=== PATIENT | male | born 1975 | race Caucasian/White ===

== ENCOUNTER → 2017-07-07 12:41 | Outpatient (CLI) | payer OTHER, SELFPAY ==
[2017-07-07 14:32] LABS: Liquefaction Semen YES (YES); Sperm Count 35 x10^6/mL (20-150); Sperm Motility 45% % Motile
[2017-07-07 14:33] LABS: Sperm Morphology 62 %ABNORM (0-30)
== END ==
PROVIDERS: PCP Specialist; Visit Provider Specialist
DX: N46.9 Male infertility, unspecified (principal)
CPT/HCPCS: 89320

== ENCOUNTER → 2017-07-21 08:56 | Outpatient (CLI) | payer OTHER, SELFPAY | PROVIDERS: PCP Specialist; Visit Provider Specialist | DX: R86.9 Unspecified abnormal finding in specimens from male genital organs (principal) ==

== ENCOUNTER → 2017-07-21 08:59 | Outpatient (CLI) | payer OTHER, SELFPAY ==
[2017-07-21 10:14] LABS: Liquefaction Semen YES (YES); Sperm Count 497 x10^6/mL (20-150); Sperm Morphology 11 %ABNORM (0-30); Sperm Motility 60% % Motile; Volume Semen 4.5 (1.0-5.0)
== END ==
PROVIDERS: PCP Specialist; Visit Provider Specialist
DX: R86.9 Unspecified abnormal finding in specimens from male genital organs (principal)
CPT/HCPCS: 89320

== ENCOUNTER → 2017-09-21 12:47 | Outpatient (CLI) | payer OTHER, SELFPAY ==
--- NOTE | 2017-09-21 | DI.MRI.S_ITS ---
PROCEDURE: MR FOOT LEFT WO/W CON INDICATIONS: Localized swelling, mass and lump, left lower limb TECHNIQUE: Noncontrast coronal T1 spin echo and STIR, sagittal T1 spin echo with fat saturation and STIR, axial T1 spin echo and T2 fast spin echo with fat saturation. After the administration of contrast, axial/sagittal/coronal T1 spin echo with fat saturation through the left foot. COMPARISON: None. FINDINGS: Image quality: Excellent. Bones: The visualized bone marrow demonstrates normal signal on all sequences. The overlying cortex appears intact. No abnormal intraosseous enhancement. Soft tissues: There is a predominantly T1 hypointense and T2 hyperintense lesion in soft tissue along plantar aspect of first metatarsal head and measures 2.1 x 1.5 x 2 cm in size. Similar signal intensity lesion measures 1.1 x 1 x 2.6 cm in size is noted within soft tissue along plantar aspect of second MTP joint. Both lesion shows fairly homogeneous contrast enhancement. No other area of abnormal enhancement is seen. There is no underlying flexor tendon involvement. Lisfranc ligament and joint is intact. The scanned muscles demonstrate normal overall bulk and internal signal. IMPRESSION: 2 enhancing soft tissue mass along plantar aspect of first and second MTP joints as described above, with no underlying flexor tendon involvement in or muscle involvement. No marrow signal abnormality. Consider excision or biopsy of the lesions for tissue diagnosis. Dictated by: Deandre Merino M.D. on 09/21/2017 at 15:27 Approved by: Deandre Merino M.D. on 09/21/2017 at 15:32
--- NOTE | 2017-09-21 | DI.MRI.S_ITS ---
PROCEDURE: MR FOOT RT WO/W CON INDICATIONS: Localized swelling, mass and lump, left lower limb TECHNIQUE: Noncontrast coronal T1 spin echo and STIR, sagittal T1 spin echo with fat saturation and STIR, axial T1 spin echo and T2 fast spin echo with fat saturation. After the administration of contrast, axial/sagittal/coronal T1 spin echo with fat saturation through the right foot. COMPARISON: None. FINDINGS: Image quality: Excellent. Bones: The visualized bone marrow demonstrates normal signal on all sequences. The overlying cortex appears intact. No abnormal intraosseous enhancement. Soft tissues: There is a 14 x 8 x 13 mm T1 hypointense and heterogeneously T2 hyperintense lesion within plantar soft tissue of the forefoot at the level of the first metatarsal base superficial and likely involving the plantar fascia this level. Fairly homogeneous contrast enhancement within this lesion is noted. No other enhancing lesion is seen. The scanned muscles demonstrate normal overall bulk and internal signal. IMPRESSION: T1 hypointense and T2 hyperintense enhancing lesion involving superficial and likely involving the plantar fascia at the level of first metatarsal base and measures 14 x 8 x 13 mm in size. Finding could represent a plantar fibroma versus other type of soft tissue mass. No underlying plantar fascia rupture. No underlying muscle involvement. No marrow signal abnormality. Dictated by: Deandre Merino M.D. on 09/21/2017 at 15:14 Approved by: Deandre Merino M.D. on 09/21/2017 at 15:26
== END ==
PROVIDERS: Visit Provider Podiatrist
DX: R22.42 Localized swelling, mass and lump, left lower limb (principal)
CPT/HCPCS: 73720

== ENCOUNTER 2018-02-24 07:32 | Day surgery (SDC) | payer OTHER, SELFPAY ==
[2018-02-20 12:53] VITALS: BMI 32.5
[2018-02-24] VITALS (7 sets, daily range): BP systolic 112–139; BP diastolic 72–93; PULSE 60–71; RESP 10–16; TEMP 36.3–36.7; O2SAT 95–98; BMI 32.5
--- NOTE | 2018-02-24 | PATH_ITS ---
[facility] Accession Number: [id number] . 01 Material submitted: . PART A: LEFT GREAT TOE PART B: SECOND METATARSAL HEAD . 02 Diagnosis: A. Soft Tissue From Left Great Toe: Fascial fibromatosis, negative for atypia. . B. Soft Tissue From Second Metatarsal Head Area: Fascical fibromatosis. MRV/02/27/2018 . 02 Electronically signed: . Ed Gomez MD, Pathologist NPI- [id number] . 01 Gross description: . (A) Received in formalin, labeled mass L great toe, are multiple pieces of potter-white, solid, firm tissue (2.7 x 1.8 x 0.7 cm in aggregate). The tissue is inked black. Cracking Still Operator tissue submitted in cassette A1. (B) Received in formalin, labeled L foot second metatarsal head, is a piece of potter-white rubbery tissue (1.2 x 0.7 x 0.4 cm) with a potter white homogenous cut surface. The resection margin is inked black. Serially sectioned and entirely submitted in cassette B1. ([id number]) /FRR . 02 Pathologist provided ICD-10: M72.9 . 02 CPT . 194128, [id number] Performed at: 01 [facility] [address], [place], [place] [id number] MD Landon Langley MD Phone: [phone] Performed at: 02 [facility] [address] [place], [place] [id number] MD Geno Hewitt MD Phone: [phone]
[2018-02-24] MEDS: LACTATED RINGERS 1,000 ML 42 ML IV (08:25)
--- NOTE | 2018-02-24 09:01 | PM.PREOP ---
Pre-operative Note Interval Note History & Physical reviewed/Exam performed by Physician: Yes Changes to H&P: No
--- NOTE | 2018-02-24 09:02 | P.OP_ITS ---
Operative Date/Time/Diagnoses Date of procedure: 02/24/18 Time of procedure: 09:02 Pre-op diagnosis: Left foot soft tissue masses, suspect fibromas Post-op diagnosis: same Procedure & Clinicians Procedure: Left foot excision soft tissue nodules, suspect fibromas, x 3 Same procedure as scheduled: Yes Indications: Painful thickened soft tissue masses in three locations on the left foot. Conservative measures failed to alleviate the pain and he wished to have surgical excision/reduction at this time. Surgeon: Ena Dillon Click Yes if Unassisted: Yes Anesthesia Type: General Operative Notes Closure Type: primary Specimen(s): other (1) First metatarsal head soft tissue sent to pathology for identification 2) Second metatarsal head soft tissue sent to pathology for identification) Blood products transfused: none Procedure in detail: The patient was brought to the operating room and placed on the operating table in the supine position, tourniquet was placed about the left thigh. Well padded appropriately aligned. After induction of general anesthesia the foot and ankle were prepped and draped in the usual aseptic manner. The tourniquet was inflated. 1) After check of anesthesia, an incision was made over the plantar 1st metatarsal head. The incision was deepened through subcutaneous tissues, being careful to identify and retract all vital neural and vascular structures. All bleeders were cauterized and ligated as necessary. Immediately noted was a packed fibrous conglomeration, some more superficial and another portion more deep toward and adhered to the deep fascia surrounding the great toe. It did not appear to be invested into the flexor tendon or into the sesamoid apparatus , but certainly up against it. Did not appear vascularized. Resection was performed and this tissue was sent to pathology for identification. The area was irrigated with copious amts of normal sterile saline. The 1st MTPJ was put through a ROM and no clicking, popping, or additional significant fibromatous components were noted. 2) The next incision was made on the plantar 2nd metatarsal head. This was over the area of suspected fibroma. Incision was deepened through subcutaneous tissues being careful to identify and retract all vital neural and vascular structures. All bleeders were cauterized and ligated as necessary. A linear firm fibroma type nodule appeared in the subcutaneous tissues and was somewhat adhered to the underlying skin. This did not appear to breach the tendon sheath and was linear and discrete. It appeared to be 1 unit and was white and shiny with thickness. It was easily resected and passed to pathology for identification. The area was irrigated with copious amounts of normal sterile saline. 3) The next incision was made on the medial central arch where a segment of the plantar fascia appeared to have a fibroma as well. Incision was deepened and carefully the skin was retracted to note the underlying thickened portion of the plantar fascia. This was white and shiny and within the fibers of the plantar fascia itself with normal striations noted. This was reduced carefully sharply and care was taken to verify that no additional enlarged nodules were present in that area. The area was irrigated with copious amounts of normal sterile saline. The tourniquet was deflated, a prompt hyperemic response was seen to the foot. A few areas required subcutaneous closure using 4 0 Vicryl. Skin closure performed using 3-0 nylon. The area was dressed with a lightly compressive sterile dressing including Adaptic, 4x4s, conform and Coban. The foot was placed in stockinette and the boot and the patient was transferred to the PACU with vital signs stable and vascular status intact. Complications: none Condition: stable Disposition: PACU Plan for aftercare: Following a period of postoperative monitoring, the patient will be discharged home on written and oral postoperative instructions including keeping the dressing dry and intact, avoiding ambulation to the foot. No weight-bearing to the foot x3 weeks. Generally around the 3rd week the sutures will be removed.
[2018-02-24] MEDS: CEFAZOLIN 1 GM VIAL IV (09:07)
[2018-02-24] MEDS: CEFAZOLIN 1 GM/50 ML FROZ.PIGGY IV (09:07)
--- NOTE | 2018-02-24 09:37 | SUR.OPER ---
Supine on padded OR bed, head on pillow, arms secured on padded arm boards at <90 degrees abduction, legs uncrossed, safety belt at thigh, tape over blanket over lower legs.
--- NOTE | 2018-02-24 09:37 | SUR.OPER ---
Supine on padded OR bed, head on pillow, arms secured on padded arm boards at <90 degrees abduction, legs uncrossed, safety belt at thigh, tape over blanket over non operative lower leg, operative leg draped free.
[2018-02-24] MEDS: BUPIVACAINE 0.5% W/ EPI (PF) VIAL 30 ML INJ (09:47)
[2018-02-24] MEDS: fentaNYL 100 MCG/2 ML INJ 50 MCG IV (10:42)
[2018-02-24] MEDS: HYDROCODONE/ACET 5/325 TABLET 1 TAB PO (10:55)
--- NOTE | 2018-02-24 11:51 | SUR.PHASEII ---
to bedside, d/c instructions discussed, both voiced an understanding. pt ready to leave, assisted by to dress, pt non weight bearing gotten into wheel chair with SBA, left unit in stable condition.
== END 2018-02-24 11:45 ==
LOC: OR 07:38
PROVIDERS: Visit Provider Podiatrist
PROC: (CPT 28090; principal; 2018-02-24 08:45)
DX: M72.2 Plantar fascial fibromatosis (principal)
CPT/HCPCS: 28090; 28092 ×2; 88305; J0690; J1100; J1885; J2250; J2405; J2704; J3010

== ENCOUNTER 2018-03-20 08:40 | Emergency (ER) | payer OTHER, SELFPAY ==
[2018-03-20 08:47] VITALS: BP 149/98; PULSE 88; RESP 16; TEMP 36.9; O2SAT 96; BMI 31.8
--- NOTE | 2018-03-20 09:17 | ED.URI ---
HPI - URI/Sore Throat General Chief Complaint: Upper Respiratory Symptoms Stated Complaint: STREP THROAT Time Seen by Provider: 03/20/18 09:15 Source: patient Mode of arrival: ambulatory Limitations: no limitations History of Present Illness HPI Narrative: 42-year-old male comes in with complaint of sore throat. Patient states that symptoms have been present for several days. He states that he has had a little bit of cold cough congestion sort of feelings. It started sort of more in his chest and is now more in his throat. He has not had any fevers. Has not had any productive sputum. No shortness of breath, no chest pain or pressure. No nausea no vomiting no other GI or urinary symptoms. He recently had surgery on his foot and is scheduled to have surgery on Tuesday on his foot. Patient states he has had some muscle aches in general. He was concerned that if he did have an infection that would be treatable with antibiotics that he should get treated so he does not have to miss his surgery. Related Data Home Medications Medication Instructions Recorded Confirmed hydrocodone-acetaminophen [[place]] 1 - 2 tab PO Q4-6H PRN 02/20/18 02/24/18 loratadine 10 mg PO DAILY 02/20/18 02/24/18 pantoprazole 40 mg PO DAILY 02/24/18 02/24/18 Allergies Allergy/AdvReac Type Severity Reaction Status Date / Time No Known Drug Allergies Allergy Verified 02/24/18 08:02 Review of Systems Review of Systems ROS Unobtainable: All systems reviewed & are unremarkable except as noted in HPI and below Constitutional Denies chills, Denies fever(s), Denies lethargy and Denies weakness ENT Ears, Nose, Mouth, and Throat: Reports nasal congestion and Reports sore throat Cardiovascular Denies chest pain, Denies irregular heart rhythm, Denies lightheadedness, Denies palpitations, Denies dyspnea, Denies dyspnea on exertion and Denies orthopnea Respiratory Denies change in phlegm color, Reports chest congestion, Denies cough, Denies excessive phlegm production, Denies pain on inspiration, Denies dyspnea, Denies dyspnea on exertion and Denies wheezing Gastrointestinal Gastrointestinal: Denies abdominal pain, Denies change in bowel habits, Denies diarrhea, Denies nausea and Denies vomiting Musculoskeletal Reports myalgias and Reports other (walking boot, healing surgery.) Integumentary/Breasts Denies rash Neurologic Denies weakness Endocrine Denies palpitations Allergic/Immunologic Denies wheezing [facility] Medical History GERD (gastroesophageal reflux disease) (Acute) Inguinal hernia (Acute) Localized swelling, mass and lump, left lower limb (Acute) Plantar fascial fibromatosis (Acute) Retinopathy (Acute) Surgical History Hx of LASIK (Acute) Social History household members: spouse Smoking Status: Never smoker alcohol intake: current Social History household members: spouse Smoking Status: Never smoker alcohol intake: current Exam Narrative Exam Narrative: GEN: well nourished, well appearing male, alert and oriented x 3, patient appears to be in no acute distress. HEENT: Atraumatic, pupils are equal round reactive to light, extraocular movements are intact, nares are clear, TMs are clear with no fluid, there is no conjunctival pallor. Throat is clear without any exudates, erythema, tonsillar enlargement or uvular deviation, no hoarseness. HEART: Regular rate and rhythm without murmur, clicks, rubs LUNGS:Lungs clear to auscultation, no wheezes, rales, crackles, chest moves symmetrically ABD:bowel sounds normal, soft, non-tender, no guarding, rebound, rigidity, no masses noted, no hepatosplenomegaly MSCL: Non-tender, no muscle atrophy, muscles strength 5/5 upper and lower extremities, full range of motion, patient has walking boot on left ankle, no swelling of leg. NEURO:CN 2-12 intact, sensation normal Initial Vital Signs Initial Vital Signs: Vital Signs Temperature 98.4 F 03/20/18 08:47 Pulse Rate 88 03/20/18 08:47 Respiratory Rate 16 03/20/18 08:47 Blood Pressure 149/98 H 03/20/18 08:47 Pulse Oximetry 96 03/20/18 08:47 Course Vital Signs - 8 hr 03/20/18 08:47 Temperature 98.4 F Pulse Rate 88 Respiratory Rate 16 Blood Pressure 149/98 H Pulse Oximetry 96 MDM - URI/Sore Throat Lab Data Point of Care Testing Rapid Strep A Negative MDM Narrative Medical decision making narrative: Strep swab is negative. Patient has been afebrile and influenza is less likely. Discussed that if he does develop fevers may be worthwhile to discuss with his physician being tested. We did discuss today we also discussed that if we test the treatment possibly the table fluid which short course by less than a day. Patient defers testing as he would not take Tamiflu in that case. Discharge Plan Departure Patient Disposition: Home Clinical Impression: Pharyngitis Discharge Date/Time: 03/20/18 09:41 Interventions: ED Discharge Assessment Last Done: 03/20/18 09:40 Instructions: DI for Pharyngitis/Tonsillopharyngitis -- Adult Activity Restrictions/Additional Instructions: Follow up with primary care in the next week if symptoms are not resolving. If you are having fevers, contact either her primary care or your surgeon about whether they would like you to be further evaluated before your surgery on Tuesday. Continue with hydration regularly. Tylenol as needed for pain, you may take up to 1000mg every 8 hours as needed. Return to ER for persistent fevers, chest pain, shortness of breath, persistent vomiting, black or bloody stools or other new or concerning symptoms. Prescriptions: No Action hydrocodone-acetaminophen [[place]] 5-325 mg Tablet 1 - 2 tab PO Q4-6H PRN (Reason: Allergies) RF: 0 loratadine 10 mg Capsule 10 mg PO DAILY RF: 0 pantoprazole 40 mg Tablet,Delayed Release (Dr/Ec) 40 mg PO DAILY RF: 0
== END 2018-03-20 09:41 | disposition home or self-care (01) ==
PROVIDERS: Emergency Provider Emergency Medicine
DX: J02.9 Acute pharyngitis, unspecified (principal)
CPT/HCPCS: 87880; 99282; 99283

== ENCOUNTER 2018-03-24 06:49 | Day surgery (SDC) | payer OTHER, SELFPAY ==
[2018-03-21 15:14] VITALS: BMI 31.3
--- NOTE | 2018-03-24 | PATH_ITS ---
[facility] Accession Number: [id number] . 01 Material submitted: . RIGHT FOOT PLANTAR FIBROMA . 02 Diagnosis: Tissue From Plantar Aspect of Right Foot: Fascial fibromatosis. Negative for atypia. MRV/03/27/2018 . 02 Electronically signed: . Ed Gomez MD, Pathologist NPI- [id number] . 01 Gross description: . Received in formalin, labeled R foot plantar fibroma, are multiple pieces of potter-white rubbery semitranslucent tissue (2.5 x 1.4 x 0.6 cm in aggregate). Entirely submitted in cassette A1. ([id number]) /MRV . 02 Pathologist provided ICD-10: M72.2 . 02 CPT . 458852 Performed at: 01 [facility] [address] [id number] MD Landon Langley MD Phone: [phone] Performed at: 02 [facility] [address] [place], [place] [id number] MD Geno Hewitt MD Phone: [phone]
[2018-03-24 07:14] VITALS: BP 134/90; PULSE 92; RESP 15; TEMP 36.4; O2SAT 94
[2018-03-24 07:18] VITALS: BMI 31.3
--- NOTE | 2018-03-24 07:21 | PM.PREOP ---
Pre-operative Note Interval Note History & Physical reviewed/Exam performed by Physician: Yes Changes to H&P: Yes H&P completed within 30 days and has changed as indicated here:: Recent nasal congestion and cold symptoms, denies fever or difficulty breathing. Deep breath available without difficulty.
--- NOTE | 2018-03-24 07:23 | PM.OP.1 ---
Operative Date/Time/Diagnoses Date of procedure: 03/24/18 Time of procedure: 07:23 Pre-op diagnosis: Right foot soft tissue mass Post-op diagnosis: same Procedure & Clinicians Procedure: Right foot plantar fibroma excision Same procedure as scheduled: Yes Indications: Painful prominent lump to the sole of the foot, similar to the ones on the contralateral foot which were recently removed and found to be fibromas. Conservative measures failed to alleviate his pain and he wished to have surgical intervention at this time. Surgeon: Ena Dillon Click Yes if Unassisted: Yes Anesthesia Type: General Operative Notes Closure Type: primary Specimen(s): other (Soft tissue mass plantar midfoot to pathology, suspect fibroma) Estimated Blood Loss (mL): 20 Blood products transfused: none Procedure in detail: The patient was brought to the operating room and placed on the operating table in the supine position, tourniquet was placed about the right ankle. Well padded appropriately aligned. After induction of general anesthesia the foot and ankle were prepped and draped in the usual aseptic manner. The tourniquet was inflated. After a check of anesthesia, an incision was made on the medial central arch where a segment of the plantar fascia appeared to have a fibroma. Incision was deepened and carefully the skin was retracted to note the underlying thickened portion of the plantar fascia. This was white and shiny and within the fibers of the plantar fascia itself with normal striations noted. Measured 2.0 x 1.8 cm. This was reduced carefully, sharply, and care was taken to verify that no additional enlarged nodules were present in that area. The area was irrigated with copious amounts of normal sterile saline. The tourniquet was deflated, a prompt hyperemic response was seen to the foot. Subcutaneous closure using 4-0 Vicryl. Skin closure performed using 3-0 nylon. The area was dressed with a lightly compressive sterile dressing including Adaptic, 4x4s, conform and [place] wrap. The foot was placed in stockinette and post op shoe and the patient was transferred to the PACU with vital signs stable and vascular status intact. Complications: none Condition: stable Disposition: PACU Plan for aftercare: Following a period of postoperative monitoring, the patient will be discharged home on written and oral postoperative instructions including keeping the dressing dry and intact, avoiding ambulation on the foot, icing and elevating the foot when seated at home. DVT prevention techniques have been reviewed. For the 1st postoperative visit the dressing will be changed and update on pathology report and close to the 3rd postoperative week we will likely remove the sutures.
[2018-03-24] MEDS: LACTATED RINGERS 1,000 ML 42 ML IV (07:31)
[2018-03-24] MEDS: CEFAZOLIN 2 GM/100 ML FROZ.PIGGY IV (08:00)
--- NOTE | 2018-03-24 08:11 | SUR.OPER ---
Supine on padded OR bed, head on pillow, arms secured on padded arm boards at <90 degrees abduction, legs uncrossed, safety belt at thigh, tape over blanket over nonoperative leg, operative leg draped free.
[2018-03-24] MEDS: BUPIVACAINE 0.5% (PF) VIAL 30 ML INJ (08:24)
[2018-03-24 08:38] VITALS: BP 122/78; PULSE 78; RESP 15; TEMP 36.1; O2SAT 95
[2018-03-24 08:43] VITALS: BP 125/91; PULSE 78; RESP 15; O2SAT 96
[2018-03-24 08:48] VITALS: BP 134/93; PULSE 81; RESP 16; O2SAT 96
[2018-03-24] MEDS: HYDROCODONE/ACET 5/325 TABLET 1 TAB PO (09:07)
[2018-03-24 09:12] VITALS: BP 124/86; PULSE 75; RESP 15; TEMP 36.1; O2SAT 99
--- NOTE | 2018-03-24 09:19 | SUR.PHASEII ---
Pt. has walking shoe in place (right foot) and walking boot is going home with the pt. Pt. and spouse aware of weight bearing status.
== END 2018-03-24 09:22 | disposition home or self-care (01) ==
PROVIDERS: Visit Provider Podiatrist
PROC: (CPT 28090; principal; 2018-03-24 07:45)
DX: M72.2 Plantar fascial fibromatosis (principal)
CPT/HCPCS: 28090; 88305; J0690; J2250; J2405; J2704; J3010